=== PATIENT | female | born 1985 | race Caucasian/White ===

== ENCOUNTER 2017-10-09 03:32 | Inpatient (IN) | payer OTHER ==
[~2017-10-09] VITALS: Ht 154.9 cm; Wt 68.0 kg
[2017-10-09] VITALS (18 sets, daily range): BP systolic 97–132; BP diastolic 48–73; PULSE 67–107; RESP 16–18; TEMP 97.8–98.6; O2SAT 96
[2017-10-09] MEDS ORDERED: LIDOCAINE HCL 1% 50 ML VIAL INFIL PRN (04:30)
[2017-10-09] MEDS ORDERED: CITRIC ACID-SODIUM CITRATE LIQ 30 ML UDC PO SCH (04:30)
[2017-10-09] MEDS ORDERED: NS 500 ML BOLUS IV PRN (04:30)
[2017-10-09] MEDS ORDERED: ONDANSETRON HCL 4 MG/2 ML VIAL IV PUSH PRN (04:30)
[2017-10-09] MEDS ORDERED: MINERAL OIL 10 ML VIAL TOPICAL PRN (04:30)
[2017-10-09] MEDS ORDERED: OXYTOCIN 30 UNITS 500ML PREMIX IV ONE (04:30)
[2017-10-09] MEDS ORDERED: LIDOCAINE HCL 1% 50 ML VIAL I-DERMAL PRN (04:30)
[2017-10-09] MEDS ORDERED: PENICILLIN G POT 5,000,000 UNITS/NS 100 ML (Mini-Bag Plus) IV ONE ×2 (04:30)
[2017-10-09] MEDS ORDERED: LACTATED RINGER'S 1000 ML BOLUS IV PRN (04:30)
[2017-10-09] MEDS ORDERED: NS 1000 ML IV PRN (04:30)
[2017-10-09] MEDS: LACTATED RINGER'S 1000 ML IV SCH ×3 (04:35→11:43)
[2017-10-09 04:57] LABS: AUTOMATED NEUTROPHIL # 10.1 TH/MM3 (1.8-7.7); BASOPHIL % 0.1 % (0.0-2.0); EOSINOPHIL % 0.1 % (0.0-4.0); HEMATOCRIT 34.1 % (35.0-46.0); HEMOGLOBIN 11.4 GM/DL (11.6-15.3); LYMPHOCYTE # 1.4 TH/MM3 (1.0-4.8); MEAN CORPUSCULAR HEMOGLOBIN 29.6 PG (27.0-34.0); MEAN CORPUSCULAR HGB CONC 33.6 % (32.0-36.0); MEAN PLATELET VOLUME 10.3 FL (7.0-11.0); MONO % 3.1 % (0.0-8.0); MONOCYTE # 0.4 TH/MM3 (0-0.9); NEUT % 84.7 % (16.0-70.0); PLATELET COUNT 258 TH/MM3 (150-450); RED BLOOD COUNT 3.87 MIL/MM3 (4.00-5.30); RED CELL DISTRIBUTION WIDTH 14.4 % (11.6-17.2); WHITE BLOOD COUNT 11.9 TH/MM3 (4.0-11.0)
[2017-10-09 05:03] LABS: BACTERIA, URINE RARE /hpf; BILIRUBIN, URINE NEG (NEG); BLOOD, URINE NEG (NEG); GLUCOSE,URINE NEG (NEG); KETONE, URINE 40 mg/dL (NEG); MUCUS URINE FEW /lpf (OCC); NITRITE,URINE NEG (NEG); SQUAMOUS EPITHELIAL CELL URINE 9 /hpf (0-5); URINE COLOR YELLOW (YELLW/STRAW); URINE LEUKOCYTE ESTERASE TRACE (NEG)
--- NOTE | 2017-10-09 06:46 | HHI.HP ---
History & Physical H&P OB ED Note (Detail) Patient Name: Serenity Tran Unit Number: [id number] Date of : 1985 Patient Status: Admitted Inpatient Attending Doctor: Caro Guajardo MD HPI HPI Chief Complaint Contractions Travel History International Travel<30 Days: No Contact w/Intl Traveler<30Days: No Known Affected Area: No History of Present Illness HPI 32 year old, care complicated by GBS positive Patient presents complaining of the onset of painful contractions at 5pm last night. She reports increased in frequency and intensity to every 3-5 minutes. There are no alleviating factors are attempted treatments. The contractions have worsened with time. She reports good movement. She denies any leaking fluid or vaginal bleeding. Weeks Gestation: 40 Para: 0 : 1 History (Limited) History Past Medical History Medical History: Denies Significant Hx Obstetric History Obstetric History Past Surgical History Surgical History: No Previous Surgery Family History Family History: Negative Social History Alcohol Use: No Tobacco Use: No Substance Abuse: No Allergies-Medications Allergies-Medications (Allergen,Severity, Reaction): Coded Allergies: No Known Allergies (Unverified , 10/09/17) ROS Review of Systems Except as stated in HPI: all other systems reviewed are Neg Physical Exam Physical Exam Vital Signs Date Time Temp Pulse Resp B/P (MAP) Pulse Ox O2 Delivery O2 Flow Rate FiO2 10/09/17 04:29 18 Narrative GENERAL: Well-nourished, well-developed patient. SKIN: Warm and dry. HEAD: Normocephalic and atraumatic. EYES: No scleral icterus. No injection or drainage. ENT: No nasal drainage noted. Mucous membranes pink. Airway patent. NECK: Supple, trachea midline. No JVD. CARDIOVASCULAR: Regular rate and rhythm without murmurs, gallops, or rubs. RESPIRATORY: Breath sounds equal bilaterally. No accessory muscle use. BREASTS: Deferred ABDOMEN/GI: Abdomen soft, non-tender, bowel sounds present, no rebound, no guarding Gravid GENITOURINARY: External Genitalia: intact and normal in appearance. Grossly normal BUS. No cervical or vaginal masses appreciated. Physiologic discharge. Grossly normal rugae. SVE 4/90/-1 at 4 AM. FHT's: heart tones in the 120s with moderate long-term variability, good accelerations, no decelerations noted. EXTREMITIES: No cyanosis or edema. BACK: Nontender without obvious deformity. NEUROLOGICAL: Awake and alert. Motor and sensory grossly within normal limits. Normal speech. Musculoskeletal: Grossly normal range of motion, gait, muscle strength Psychiatric: Grossly normal memory and affect Data Data Data Orders Orders Ob (2e) Additional Admit Info (10/09/17 04:08) Admit To Inpatient (10/09/17 ) Vital Signs (Adult) .Per protocol (10/09/17 04:14) Activity Oob Ad Radha (10/09/17 04:14) Heart (10/09/17 04:14) Amnioinfusion (10/09/17 04:14) Urinary Catheter Management .ONCE (10/09/17 04:14) Diet Liquid (10/09/17 Breakfast) Complete Blood Count With Diff (10/09/17 04:14) Urinalysis - C+S If Indicated (10/09/17 04:14) Type And Screen (10/09/17 04:14) Resp Oxygen Non Rebreathe Mask (10/09/17 ) ^ Epidural / Intrathecal Infus (10/09/17 04:14) Ob/Psych Drug Screen, Urine (10/09/17 04:16) Lactated Ringer's 1000 Ml Inj (Lr 1000 M (10/09/17 04:30) Lactated Ringer's 1000 Ml Inj (Lr 1000 M (10/09/17 04:30) Sodium Chlorid 0.9% 500 Ml Inj (Ns 500 M (10/09/17 04:30) Sodium Chlor 0.9% 1000 Ml Inj (Ns 1000 M (10/09/17 04:30) Lidocaine 1% Inj (50 Ml) (Xylocaine 1% I (10/09/17 04:30) Citric Acid-Sodium Citrate Liq (Bicitra (10/09/17 04:30) Ondansetron Inj (Zofran Inj) (10/09/17 04:30) Fentanyl Inj (Fentanyl Inj) (10/09/17 04:30) Fentanyl Inj (Fentanyl Inj) (10/09/17 04:30) Penicillin G Potassium Inj (Pfizerpen-G (10/09/17 04:30) Penicillin G Potassium Inj (Pfizerpen-G (10/09/17 08:30) Oxytocin 30 Units-500ml Premix (Pitocin (10/09/17 04:30) Lidocaine 1% Inj (50 Ml) (Xylocaine 1% I (10/09/17 04:30) Light Mineral Oil (Muri-Lube Oil) (10/09/17 04:30) No Care Spec Serology (10/09/17 04:23) Rapid Plasmin Reagin Screen (10/09/17 04:23) Hepatitis Profile (10/09/17 04:23) Rubella Immune Status (10/09/17 04:23) Labs Laboratory Tests Test 10/09/17 04:00 10/09/17 04:31 Urine Color YELLOW Urine Turbidity HAZY Urine pH 7.0 Urine Specific Roper 1.020 Urine Protein 30 Urine Glucose (UA) NEG Urine Ketones 40 Urine Occult Blood NEG Urine Nitrite NEG Urine Bilirubin NEG Urine Urobilinogen LESS THAN 2.0 Urine Leukocyte Esterase TRACE Urine RBC LESS THAN 1 Urine WBC 1 Urine Squamous Epithelial Cells 9 Urine Bacteria RARE Urine Mucus FEW Microscopic Urinalysis Comment CULT NOT INDICATED Urine Opiates Screen NEG Urine Barbiturates Screen NEG Urine Amphetamines Screen NEG Urine Benzodiazepines Screen NEG Urine Cocaine Screen NEG Urine Cannabinoids Screen NEG White Blood Count 11.9 Red Blood Count 3.87 Hemoglobin 11.4 Hematocrit 34.1 Mean Corpuscular Volume 88.0 Mean Corpuscular Hemoglobin 29.6 Mean Corpuscular Hemoglobin Concent 33.6 Red Cell Distribution Width 14.4 Platelet Count 258 Mean Platelet Volume 10.3 Neutrophils (%) (Auto) 84.7 Lymphocytes (%) (Auto) 12.0 Monocytes (%) (Auto) 3.1 Eosinophils (%) (Auto) 0.1 Basophils (%) (Auto) 0.1 Neutrophils # (Auto) 10.1 Lymphocytes # (Auto) 1.4 Monocytes # (Auto) 0.4 Eosinophils # (Auto) 0.0 Basophils # (Auto) 0.0 CBC Comment DIFF FINAL Differential Comment HIV (1&2) Antibody NEGATIVE Rubella Immunity Screen IMMUNE Rubella Antibody, Quantitative GREATER THAN 500.0 MDM MDM Plan Assessment/plan: 1. IUP at 38.5 2. Active labor: Will admit for active labor at term, discussed risks of and risks/indications of delivery. Discussed that if delivery is indicated risks include but are not limited to pain, infection, bleeding, injury to other organs like the bladder/bowel/nerves/vessels, injury to the baby, need for blood transfusion, need for hysterectomy or repeat operation, wound infection/breakdown and other possible complications. The patient is in agreement if indicated. 3. Reassuring testing with reactive NST and category 1 heart rate tracing: Continue EFM. 4. GBS positive: Penicillin G ordered for GBS prophylaxis 5. Pain management: Epidural ordered if patient desires Caro Guajardo MD Oct 09, 2017 06:45 Caro Guajardo MD Oct 09, 2017 06:46
[2017-10-09] MEDS ORDERED: PREN29TA PO (07:11)
[2017-10-09] MEDS: PENICILLIN G POT 2,500,000 UNITS/NS 100 ML IV SCH ×4 (08:45→12:59)
[2017-10-09] MEDS ORDERED: LIDOCAINE HCL 1% 20 ML VIAL ONE (11:00)
[2017-10-09 12:00] LABS: HEPATITIS A AB IGM NEGATIVE (NEGATIVE); HEPATITIS B CORE AB IGM NEGATIVE (NEGATIVE); HEPATITIS B SURFACE ANTIGEN NEGATIVE (NEGATIVE); HEPATITIS C AB IgG NEGATIVE (NEGATIVE)
--- NOTE | 2017-10-09 13:47 | PD.OB.DELI ---
Weeks gestation: 38 Pt started active labor?: Yes Medical induction of labor?: No Artificial rupture of membrane: Yes Artificial ROM date: Oct 09, 2017 Artifical ROM time: 09:21 Anesthesia: None Episiotomy: None Vaginal Delivery: Normal Presentation: Occiput anterior Nuchal Cord: x1 Delayed cord clamping (45 sec): Yes Infant: Male Delivery date: Oct 09, 2017 Delivery time: 13:13 One Minute : 9 Five Minute : 9 Weight: 3110g Placenta: Spontaneous delivery Laceration: Vaginal laceration, 1 deg Repair: Chromic running Estimated blood loss: 200ml Shayna Laura MD R1 Oct 09, 2017 13:47
[2017-10-09] MEDS ORDERED: DOCUSATE SODIUM 50 MG/SENNA 8.6 MG TAB PO PRN (14:00)
[2017-10-09] MEDS ORDERED: ALUMINUM/MAGNESIUM/SIMETH 30 ML CUP PO PRN (14:00)
[2017-10-09] MEDS ORDERED: ACETAMINOPHEN 325 MG TAB PO PRN (14:00)
[2017-10-09] MEDS ORDERED: SODIUM CHLORIDE 0.9% FLUSH 10 ML FLUSH IV FLUSH PRN (14:00)
[2017-10-09] MEDS ORDERED: OXYTOCIN 30 UNITS-500ML PREMIX 500 ML IV SCH (14:00)
[2017-10-09] MEDS ORDERED: ZOLPIDEM TARTRATE 5 MG TAB PO PRN (14:00)
[2017-10-09] MEDS ORDERED: oxyCODONE/ACETAMINOPHEN 5 MG/325 MG TAB PO PRN ×2 (14:00)
[2017-10-09] MEDS ORDERED: ONDANSETRON ODT 4 MG TAB PO PRN (14:00)
[2017-10-09] MEDS ORDERED: MEASLES, MUMPS, RUBELLA VACCINE 0.5 ML VIAL SQ ONE (16:00)
[2017-10-09] MEDS ORDERED: DIPHTH/TETANUS/ACEL PERTUSSIS (BOOSTER) 0.5 ML VIAL/PFS IM ONE (16:00)
[2017-10-09] MEDS: IBUPROFEN 800 MG TAB PO PRN (16:09)
[2017-10-09] MEDS: BENZOCAINE 20% TOPICAL SPRAY 60 ML CAN TOPICAL PRN (21:00)
[2017-10-09] MEDS ORDERED: SODIUM CHLORIDE 0.9% FLUSH 10 ML FLUSH IV FLUSH SCH (21:00)
[2017-10-09] MEDS: WITCH HAZEL 50%/GLYCERIN 12.5% 40 PAD JAR TOPICAL PRN (21:00)
[2017-10-10 08:00] VITALS: BP 116/58; PULSE 66; RESP 16; TEMP 98.2
[2017-10-10] MEDS ORDERED: INFLUENZA VIRUS VACCINE (QUADRIVALENT) 0.5 ML SYR IM ONE (09:00)
--- NOTE | 2017-10-10 09:00 | HHI.OB ---
Subjective Post Day: 1 Remarks day # 1. AFVSS overnight. Pain minimal. Decreased lochia. Denies dysuria. No breast tenderness. She is feeding the baby via breast. Appetite good. No nausea or vomiting. + flatus. no bowel movement. Ambulating well. Denies calf pain, shortness of breath, or cough. Otherwise, she is doing well this morning and has no other complaints. Objective Vitals/I&O Vital Signs Date Time Temp Pulse Resp B/P (MAP) Pulse Ox O2 Delivery O2 Flow Rate FiO2 10/09/17 20:00 97.8 68 18 97/55 (69) 96 10/09/17 14:31 73 10/09/17 14:25 72 111/60 (77) 10/09/17 14:25 73 107/55 (72) 10/09/17 14:10 80 117/59 (78) 10/09/17 14:10 98.6 18 10/09/17 13:46 89 108/48 (68) 10/09/17 13:30 107 121/60 (80) 10/09/17 13:19 93 118/52 (74) 10/09/17 12:48 96 132/73 (92) 10/09/17 12:45 98.2 18 10/09/17 11:40 16 10/09/17 11:39 68 112/62 (79) 10/09/17 10:15 77 117/70 (86) 10/09/17 09:30 98.1 18 10/09/17 09:24 77 121/69 (86) Objective Remarks GENERAL: Well-nourished, well-developed patient. CARDIOVASCULAR: Regular rate and rhythm without murmurs, gallops, or rubs. RESPIRATORY: Breath sounds equal bilaterally. No accessory muscle use. ABDOMEN/GI: Abdomen soft, non-tender. Fundus: Firm, non-tender at umbilicus. GENITOURINARY: Light to moderate bleeding. EXTREMITIES: No cyanosis or edema, non-tender, without signs of DVT. Medications and IVs Current Medications Medications (Trade) Dose Ordered Sig/Jonh Route Start Time Stop Time Status Last Admin Lactated Ringer's 1,000 ml @ 125 mls/hr Q8H IV 10/09/17 04:30 10/09/17 11:43 Lactated Ringer's 1,000 ml @ 3,000 mls/hr BOLUS PRN IV 10/09/17 04:30 Sodium Chloride 500 ml @ 1,000 mls/hr BOLUS PRN IV 10/09/17 04:30 Sodium Chloride 1,000 ml @ 100 mls/hr Q10H PRN IV 10/09/17 04:30 (Bicitra Liq) 30 ml TOMOGRAPHY TECHNOLOGIST PO 10/09/17 04:30 10/12/17 04:29 (Zofran Inj) 4 mg Q6H PRN IV PUSH 10/09/17 04:30 10/09/17 04:37 Penicillin G Potassium [id number] units/Sodium Chloride 100 ml @ 200 mls/hr Q4H IV 10/09/17 08:30 10/09/17 12:59 (Muri-Lube Oil) 10 ml UNSCH PRN TOPICAL 10/09/17 04:30 (NS Flush) 2 ml BID IV FLUSH 10/09/17 21:00 (NS Flush) 2 ml UNSCH PRN IV FLUSH 10/09/17 14:00 (Tylenol) 650 mg Q4H PRN PO 10/09/17 14:00 (Motrin) 800 mg Q8H PRN PO 10/09/17 14:00 10/09/17 16:09 (Percocet 5-325 Mg) 1 tab Q4H PRN PO 10/09/17 14:00 (Percocet 5-325 Mg) 2 tab Q4H PRN PO 10/09/17 14:00 (Americaine 20% Top Spr) 1 spray Q4H PRN TOPICAL 10/09/17 14:00 10/09/17 21:00 (Tucks Pads) 1 applic QID PRN TOPICAL 10/09/17 14:00 10/09/17 21:00 (Ruby-Colace) 2 tab Q12H PRN PO 10/09/17 14:00 (Ambien) 5 mg HS PRN PO 10/09/17 14:00 (Mag-Al Plus Susp Liq) 15 ml Q8H PRN PO 10/09/17 14:00 (Zofran Odt) 4 mg Q6H PRN PO 10/09/17 14:00 (Flu (Quadrivalent) Vaccine Inj) 0.5 ml ONCE ONCE IM 10/10/17 09:00 2/8/18 09:01 Assessment/Plan Problem List: (1) Normal vaginal delivery ICD Codes: O80 - Encounter for full-term uncomplicated delivery Status: Acute Assessment and Plan 32 y/o who is PPD# 1 s/p . -Continue routine care. -Percocet and Motrin PRN pain. -Encouraged OOB. Advised pelvic rest for 6 wks. -Will need a f/u appt. within 6 wks. -Re: ctrl, she would like to consider her options. -D/c in 1-2 more days. [facility] OB attending Shayna Laura MD R1 Oct 10, 2017 09:00
[2017-10-10] MEDS: IBUPROFEN 800 MG TAB PO PRN (10:01)
[2017-10-10 20:36] VITALS: BP 108/62; PULSE 65; RESP 16; TEMP 97.9
[2017-10-11] MEDS: IBUPROFEN 800 MG TAB PO PRN (02:24)
[2017-10-11] MEDS: WITCH HAZEL 50%/GLYCERIN 12.5% 40 PAD JAR TOPICAL PRN ×2 (06:20→13:09)
[2017-10-11] MEDS: BENZOCAINE 20% TOPICAL SPRAY 60 ML CAN TOPICAL PRN (06:20)
[2017-10-11 08:00] VITALS: BP 100/60; PULSE 60; RESP 18; TEMP 98.2; O2SAT 98
[2017-10-11] MEDS ORDERED: PERI PO (08:19)
[2017-10-11] MEDS ORDERED: IBUP1TAB7 PO (08:19)
--- NOTE | 2017-10-11 08:41 | HHI.OB ---
Subjective Post Day: 2 Remarks day # 2. AFVSS overnight. Pain minimal. Decreased lochia. Denies dysuria. No breast tenderness. She is feeding the baby via breast. Appetite good. No nausea or vomiting. + flatus. no bowel movement. Ambulating well. Denies calf pain, shortness of breath, or cough. Otherwise, she is doing well this morning and has no other complaints. Objective Vitals/I&O Vital Signs Date Time Temp Pulse Resp B/P (MAP) Pulse Ox O2 Delivery O2 Flow Rate FiO2 10/10/17 20:36 65 16 108/62 (77) 10/10/17 20:36 97.9 Objective Remarks GENERAL: Well-nourished, well-developed patient. CARDIOVASCULAR: Regular rate and rhythm without murmurs, gallops, or rubs. RESPIRATORY: Breath sounds equal bilaterally. No accessory muscle use. ABDOMEN/GI: Abdomen soft, non-tender. Fundus: Firm, non-tender at umbilicus. GENITOURINARY: Light to moderate bleeding. EXTREMITIES: No cyanosis or edema, non-tender, without signs of DVT. Medications and IVs Current Medications Medications (Trade) Dose Ordered Sig/Jonh Route Start Time Stop Time Status Last Admin Lactated Ringer's 1,000 ml @ 125 mls/hr Q8H IV 10/09/17 04:30 10/09/17 11:43 Lactated Ringer's 1,000 ml @ 3,000 mls/hr BOLUS PRN IV 10/09/17 04:30 Sodium Chloride 500 ml @ 1,000 mls/hr BOLUS PRN IV 10/09/17 04:30 Sodium Chloride 1,000 ml @ 100 mls/hr Q10H PRN IV 10/09/17 04:30 (Bicitra Liq) 30 ml CASE MANAGEMENT SOCIAL WORKER PO 10/09/17 04:30 10/12/17 04:29 (Zofran Inj) 4 mg Q6H PRN IV PUSH 10/09/17 04:30 10/09/17 04:37 Penicillin G Potassium [id number] units/Sodium Chloride 100 ml @ 200 mls/hr Q4H IV 10/09/17 08:30 10/09/17 12:59 (Muri-Lube Oil) 10 ml UNSCH PRN TOPICAL 10/09/17 04:30 (NS Flush) 2 ml BID IV FLUSH 10/09/17 21:00 (NS Flush) 2 ml UNSCH PRN IV FLUSH 10/09/17 14:00 (Tylenol) 650 mg Q4H PRN PO 10/09/17 14:00 (Motrin) 800 mg Q8H PRN PO 10/09/17 14:00 10/11/17 02:24 (Percocet 5-325 Mg) 1 tab Q4H PRN PO 10/09/17 14:00 (Percocet 5-325 Mg) 2 tab Q4H PRN PO 10/09/17 14:00 (Americaine 20% Top Spr) 1 spray Q4H PRN TOPICAL 10/09/17 14:00 10/11/17 06:20 (Tucks Pads) 1 applic QID PRN TOPICAL 10/09/17 14:00 10/11/17 06:20 (Ruby-Colace) 2 tab Q12H PRN PO 10/09/17 14:00 (Ambien) 5 mg HS PRN PO 10/09/17 14:00 (Mag-Al Plus Susp Liq) 15 ml Q8H PRN PO 10/09/17 14:00 (Zofran Odt) 4 mg Q6H PRN PO 10/09/17 14:00 Assessment/Plan Problem List: (1) Normal vaginal delivery ICD Codes: O80 - Encounter for full-term uncomplicated delivery Status: Acute Assessment and Plan 32 y/o who is PPD# 2 s/p . -Continue routine care. -Percocet and Motrin PRN pain. -Encouraged OOB. Advised pelvic rest for 6 wks. -Will need a f/u appt. within 6 wks. -Re: ctrl, she would like to consider her options. -D/c today. [facility] OB attending Shayna Laura MD R1 Oct 11, 2017 08:41
--- NOTE | 2017-10-11 09:06 | HHI.DCPOC ---
Discharge Care Plan Diagnosis: (1) Normal vaginal delivery Report Symptoms to Your Doctor -Temperature above 100.5 degrees -Redness, of incision or excessive or foul smelling drainage -Unusual pain or calf pain -Increased vaginal bleeding -Painful or difficulty urinating -Feelings of extreme sadness or anxiety after 2 weeks Goals to Promote Your Health * To prevent worsening of your condition and complications * To maintain your health at the optimal level Directions to Meet Your Goals Take your medications as prescribed Follow your dietary instruction Follow activity as directed Ensure plenty of rest for recovery Drink fluids for hydration Keep your appointments as scheduled Take your immunizations and boosters as scheduled If your symptoms worsen call your PCP, if no PCP go to Urgent Care Center or Emergency Room Smoking is Dangerous to Your Health. Avoid second hand smoke Call the 24-hour crisis hotline for domestic abuse at Shayna Laura MD R1 Oct 11, 2017 09:06
== END 2017-10-11 13:29 | disposition home or self-care (01) | DRG 775 ==
LOC: HOBED 03:32 → H2EB 04:08 → H1EA 14:50
PROVIDERS: ADMIT Obstetrics & Gynecology; ATTEND Obstetrics & Gynecology
PROC: 10E0XZZ Delivery of Products of Conception, External Approach (ICD-10-PCS; principal; 2017-10-09)
PROC: 0HQ9XZZ Repair Perineum Skin, External Approach (ICD-10-PCS; 2017-10-09)
PROC: 10907ZC Drainage of Amniotic Fluid, Therapeutic from Products of Conception, Via Natural or Artificial Opening (ICD-10-PCS; 2017-10-09)
DX: O99.824 Streptococcus B carrier state complicating childbirth (principal); O69.81X0 Labor and delivery complicated by cord around neck, without compression, not applicable or unspecified; Z37.0 Single live birth; Z3A.38 38 weeks gestation of pregnancy; O70.0 First degree perineal laceration during delivery; Z23 Encounter for immunization
CPT/HCPCS: 80074; 80307; 81001; 85025; 86592; 86703; 86762; 86850; 86900; 86901; 90686; 90715; G0481; J2405; J2540; J2590; J3010; J7120; Q2038